=== PATIENT | female | born 1985 | race Caucasian/White ===

== ENCOUNTER 2017-01-12 09:57 | Emergency (ER) | payer OTHER ==
[2017-01-12 10:10] VITALS: BP 110/74
--- NOTE | 2017-01-12 10:51 | RAD ---
INDICATION: Right knee injury. TECHNIQUE: 4 views of the right knee were obtained. FINDINGS: The bones are in normal alignment. No joint effusion or fracture is seen. Joint spaces appear maintained. IMPRESSION: NO EVIDENCE FOR FRACTURE.
--- NOTE | 2017-01-12 11:40 | UC ---
Knee Pain HPI - HPI Summary HPI Summary: TOE CAUGHT ON [place] IN [place], FELL FORWARD IN 01/10/17 HAD ABRASION ON RIGHT KNEE (BILATERAL) PALMS OF HANDS. HANDS ARE HEALING, BUT KNEE IS BECOMING MORE RED SWOLLEN AND PAINFUL. SEEN AT [facility] ON 01/10/17. - History of Current Complaint Chief Complaint: UCLowerExtremity Stated Complaint: KNEE INJURY Time Seen by Provider: 01/12/17 10:02 Hx Obtained From: Patient Hx Last Menstrual Period: 2 MONTHS AGO (TUBAL LIGATION) Onset/Duration: Sudden Onset, Lasting Days, Still Present Severity Initially: Moderate Severity Currently: Moderate Pain Intensity: 7 Pain Scale Used: 0-10 Numeric Character: Dull, Aching Aggravating Factor(s): Movement, Weight Bearing, Prolonged Standing Alleviating Factor(s): Rest, Position, Cold Associated Signs And Symptoms: Positive: Swelling, Redness Able to Bear Weight: Yes - Risk Factors Gout Risk Factor: Negative - Allergies/Home Medications Allergies/Adverse Reactions: Allergies Allergy/AdvReac Type Severity Reaction Status Date / Time Hydrocodone [From Vicodin] Allergy Severe Swelling Verified 09/07/16 13:47 Of Face,Lips,& Throat Meperidine [From Demerol HCl] Allergy Intermediate Hives Verified 09/07/16 13:47 Nalbuphine [From Nubain] Allergy Intermediate Vomiting Verified 09/07/16 13:47 Fluoxetine [From Prozac] Allergy See Comment Verified 09/07/16 13:47 Sertraline [From Zoloft] Allergy See Comment Verified 09/07/16 13:47 Codeine AdvReac Headache Uncoded 09/07/16 13:47 Home Medications: Home Medications Alprazolam XR (NF) [Xanax XR (NF)] 01/12/17 [History] Oxycodone TAB(NF) [Oxycodone HCl 10 MG] 01/12/17 [History] PMH/Surg Hx/FS Hx/Imm Hx Previously Healthy: Yes Endocrine History Of: Denies: Diabetes, Thyroid Disease Cardiovascular History Of: Denies: Cardiac Disorders, Hypertension, Pacemaker/ICD Respiratory History Of: Reports: Asthma Denies: COPD GI/ History Of: Denies: Ulcer, Renal Disease - Surgical History Surgical History: Yes Surgery Procedure, Year, and Place: cat scratch fever infected cyst removal, carpal tunnel BILATERAL WRIST, right wrist CYST REMOVED, TUBAL LIGATION 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 - Family History Known Family History: Positive: Hypertension - Social History Occupation: Employed Full-time Lives: With Family Alcohol Use: None Substance Use Type: Marijuana, Prescribed Substance Use Comment - Amount & Last Used: oxycodone/xanax Smoking Status (MU): Current Every Day Smoker Type: Cigarettes Amount Used/How Often: 1/2 PPD Length of Time of Smoking/Using Tobacco: 17 years Household Exposure Type: Cigarettes Cessation Counseling: Counseled 3+Min - 10 Min - Immunization History Most Recent Tetanus Shot: 02/19/11 Review of Systems Constitutional: Negative Skin: Other - ABRASION RIGHT KNEE AND BILATERAL PALMS Eyes: Negative ENT: Negative Respiratory: Negative Cardiovascular: Negative Gastrointestinal: Negative Genitourinary: Negative Motor: Negative Neurovascular: Negative Musculoskeletal: Negative Neurological: Negative Psychological: Negative All Other Systems Reviewed And Are Negative: Yes Physical Exam Triage Information Reviewed: Yes Appearance: Well-Appearing, No Pain Distress, Well-Nourished Vital Signs: Initial Vital Signs Temp 97.6 F 01/12/17 10:02 Pulse 92 01/12/17 10:02 Resp 16 01/12/17 10:02 BP 110/74 01/12/17 10:02 Pulse Ox 100 01/12/17 10:02 Vital Signs Reviewed: Yes Eye Exam: Normal ENT Exam: Normal ENT: Positive: Normal ENT inspection, Hearing grossly normal, Pharynx normal, TMs normal Dental Exam: Normal Neck exam: Normal Neck: Positive: Supple, Nontender, No Lymphadenopathy Respiratory Exam: Normal Respiratory: Positive: Chest non-tender, Lungs clear, Normal breath sounds, No respiratory distress, No accessory muscle use Cardiovascular Exam: Normal Cardiovascular: Positive: RRR, No Murmur, Pulses Normal, Brisk Capillary Refill Abdominal Exam: Normal Musculoskeletal: Positive: Strength Intact, ROM Intact, No Edema, Other: - ABRASION RIGHT KNEE Neurological Exam: Normal Psychological Exam: Normal Skin Exam: Normal Skin: Positive: Other - HEALING ABRSIONS TO BILATERAL PALMS; RIGHT KNEE ABRASION WITH ERRETHEMA AT [facility] OF INJURY Knee Pain Course/Dx - Differential Dx/Diagnosis Differential Diagnosis/HQI/PQRI: Abrasion, Contusion, Internal Derangement Of Knee, Infection, Sprain, Strain Provider Diagnoses: ABRASION RIGHT KNEE/BILATERAL PALMS; RIGHT KNEE ABRASION; CELLULITIS RIGHT KNEE; Discharge - Discharge Plan Condition: Stable Disposition: HOME Prescriptions: Cephalexin CAP* [Keflex CAP*] 500 mg PO TID #30 cap Patient Education Materials: Cellulitis (ED), Abrasion (ED), Knee Pain (ED) Forms: *Work Release Referrals: Amish AYALA,Katlin Moreno [Primary Care Provider] -
== END 2017-01-12 11:28 | disposition home or self-care (01) ==
LOC: UCEAST 09:57
DX: S80.211A Abrasion, right knee, initial encounter (principal); L03.115 Cellulitis of right lower limb; S60.512A Abrasion of left hand, initial encounter; S60.511A Abrasion of right hand, initial encounter; W18.30XA Fall on same level, unspecified, initial encounter; Y93.9 Activity, unspecified; Y92.412 Parkway as the place of occurrence of the external cause; J45.909 Unspecified asthma, uncomplicated; Z88.5 Allergy status to narcotic agent; F12.90 Cannabis use, unspecified, uncomplicated; F17.210 Nicotine dependence, cigarettes, uncomplicated; Z71.6 Tobacco abuse counseling
CPT/HCPCS: 87070; 87205; 99212; G0463

== ENCOUNTER 2017-01-20 19:42 | Emergency (ER) | payer OTHER ==
[2017-01-20 20:03] VITALS: BP 130/66
[2017-01-20] MEDS ORDERED: Gelfoam 12-7 ADSORBABL SPONGE* 1 EA SPONGE TOPICAL ONE ×2 (20:33→21:09)
[2017-01-20] MEDS ORDERED: Gelfoam 12-7 ADSORBABL SPONGE* 1 EA SPONGE ONE ×2 (20:45→20:48)
--- NOTE | 2017-02-01 07:31 | UC ---
vicenta King Timothy, scribed for Alessia Vallejo MD on 01/20/17 at 2026 . Laceration HPI - HPI Summary HPI Summary: Joselin Guajardo is a 31 yo female presenting to [facility] with a left thumb laceration causing 10/10 burning pain since this morning. She states she was fixing her goat pen and sliced it with a piece of tin. She has self-medicated by rubber- banding her thumb until it stopped bleeding. She took 2mg of xanax 2ND [employer] but is still anxious. She took oxycodone as well. She is on clindamycin as of today TID. 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 - History Of Current Complaint Stated Complaint: THUMB LACERATION Time Seen by Provider: 01/20/17 20:17 Hx Obtained From: Patient Laceration Location: Finger - left thumb Mechanism Of Injury: Sharp Trauma Onset/Duration: Sudden Onset Severity: Moderate Pain Intensity: 10 Pain Scale Used: 0-10 Numeric Aggravating Factors: Nothing - Allergies/Home Medications Allergies/Adverse Reactions: Allergies Allergy/AdvReac Type Severity Reaction Status Date / Time Hydrocodone [From Vicodin] Allergy Severe Swelling Verified 01/20/17 20:03 Of Face,Lips,& Throat Meperidine [From Demerol HCl] Allergy Intermediate Hives Verified 01/20/17 20:03 Nalbuphine [From Nubain] Allergy Intermediate Vomiting Verified 01/20/17 20:03 Fluoxetine [From Prozac] Allergy See Comment Verified 01/20/17 20:03 Sertraline [From Zoloft] Allergy See Comment Verified 01/20/17 20:03 Codeine AdvReac Headache Uncoded 01/20/17 20:03 PMH/Surg Hx/FS Hx/Imm Hx Endocrine History Of: Denies: Diabetes, Thyroid Disease Cardiovascular History Of: Denies: Cardiac Disorders, Hypertension, Pacemaker/ICD Respiratory History Of: Reports: Asthma Denies: COPD GI/ History Of: Denies: Ulcer, Renal Disease - Surgical History Surgical History: Yes Surgery Procedure, Year, and Place: cat scratch fever infected cyst removal, carpal tunnel BILATERAL WRIST, right wrist CYST REMOVED, TUBAL LIGATION 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 - Family History Known Family History: Positive: Hypertension, Diabetes - Social History Alcohol Use: None Substance Use Type: Marijuana, Prescribed Substance Use Comment - Amount & Last Used: oxycodone/xanax Smoking Status (MU): Current Every Day Smoker Type: Cigarettes Amount Used/How Often: 1/2 PPD Length of Time of Smoking/Using Tobacco: 17 years Household Exposure Type: Cigarettes - Immunization History Most Recent Tetanus Shot: 02/19/11 Review of Systems Constitutional: Negative Skin: Other - laceration left thumb Eyes: Negative ENT: Negative Respiratory: Negative Cardiovascular: Negative Gastrointestinal: Negative Genitourinary: Negative Motor: Negative Neurovascular: Negative Musculoskeletal: Negative Neurological: Negative Psychological: Anxious All Other Systems Reviewed And Are Negative: Yes Physical Exam Triage Information Reviewed: Yes Appearance: Well-Appearing, Well-Nourished, Pain Distress Vital Signs: Initial Vital Signs Temp 97.0 F 01/20/17 19:55 Pulse 99 01/20/17 19:55 Resp 20 01/20/17 19:55 BP 130/66 01/20/17 19:55 Pulse Ox 98 01/20/17 19:55 Vital Signs Reviewed: Yes Eyes: Positive: Conjunctiva Clear. Negative: Discharge ENT: Positive: Hearing grossly normal. Negative: Muffled/hoarse voice Neck: Positive: Supple, Nontender Respiratory: Positive: Lungs clear, Normal breath sounds, No respiratory distress Cardiovascular: Positive: RRR, No Murmur, Pulses Normal, Brisk Capillary Refill Musculoskeletal: Positive: Strength Intact, ROM Intact Neurological: Positive: Alert, Muscle Tone Normal Psychological Exam: Normal Psychological: Positive: Age Appropriate Behavior Skin: Positive: Other - superficial avulsion of the ventral surface of the left thumb, oozing Laceration Repair - Laceration Repair 1 Description: Linear : No Repair Necessary - gel foam was applied Laceration Size After Repair: Length (cm) - 2cm, Width (mm) - 1cm, Depth (mm) - 2mm Modified For Repair: No Cleansing Completed Via Routine Prep: Yes Irrigation With Pressure Irrigation Device: No Suture Type: Other - no repair necessary; gel foam applied to stop bleeding Laceration Course/Dx - Course/Dx Course Of Treatment: Joselin Guajardo is a 31 yo female presenting to [facility] with a left thumb laceration and a Hx of anxiety and tobacco use. Her medication list was reviewed at this visit. She had gel foam applied to her left thumb, which was then splinted. Of note is her blood pressure of 123/90. After clinical examination and treatment, she will be discharged home with left thumb ventral avulsion and appropriate instructions. Due to her blood pressure and tobacco use she will be given the diagnosis of elevated blood pressure without diagnosis of hypertension and tobacco abuse disorder. - Differential Dx - Laceration/Wound Differental Diagnoses: Avulsion, Laceration Provider Diagnoses: left thumb ventral avulsion laceration, elevated blood pressure with diagnosis of hypertension, tobacco abuse disorder Discharge - Discharge Plan Condition: Stable Disposition: HOME Patient Education Materials: Finger Laceration (ED) Forms: *Gen. Provider Communication Referrals: Amish AYALA,Katlin Moreno [Primary Care Provider] - 2 Days Additional Instructions: Please follow up with your primary care physician regarding your visit to the emergency department today. Return to urgent care or the emergency department with any new or recurring symptoms. Procedures - Procedure Summary Procedure Summary: Left thumb was splinted after cleaning with sterile technique. A lumifoam splint was used. Pt tolerated procedure well. The documentation as recorded by the vicenta gao Timothy accurately reflects the service I personally performed and the decisions made by , Alessia Vallejo MD.
== END 2017-01-20 21:02 | disposition home or self-care (01) ==
LOC: UCEAST 19:42
DX: S61.012A Laceration without foreign body of left thumb without damage to nail, initial encounter (principal); W45.8XXA Other foreign body or object entering through skin, initial encounter; Y93.89 Activity, other specified; Y92.89 Other specified places as the place of occurrence of the external cause; J45.909 Unspecified asthma, uncomplicated; Z88.5 Allergy status to narcotic agent; Z88.8 Allergy status to other drugs, medicaments and biological substances; F12.90 Cannabis use, unspecified, uncomplicated; F17.210 Nicotine dependence, cigarettes, uncomplicated
CPT/HCPCS: 99212; A9270-GY; G0463

== ENCOUNTER 2017-04-26 10:59 | Emergency (ER) | payer OTHER ==
[2017-04-26 11:34] VITALS: BP 135/72
--- NOTE | 2017-04-26 11:52 | RAD ---
INDICATION: Right knee injury. TECHNIQUE: 4 views of the right knee were obtained. FINDINGS: There is soft tissue swelling present along the anteromedial aspect of the knee. The bones are in normal alignment. No fracture is seen. No joint effusion is noted. Joint spaces appear maintained. IMPRESSION: SOFT TISSUE SWELLING, NO FRACTURE IS SEEN.
--- NOTE | 2017-04-26 12:12 | UC ---
vicenta King Timothy, scribed for Alvin Gallegos MD on 04/26/17 at 1153 . Lower Extremity/Ankle HPI - HPI Summary HPI Summary: Joselin Guajardo is a 31 yo female presenting to [facility] with 10/10 pain, bruising, swelling of her right knee S/P having it closed in a van door 2 days ago. She denies back, hip, or ankle pain. Pt states that she has some kind of clotting disorder which results in infection and hematoma when she is bruised, and she usually receives antibiotics. Her MHx includes asthma, hysterectomy, severe anxiety, tobacco use. - History of Current Complaint Chief Complaint: UCLowerExtremity Stated Complaint: KNEE INJURY Time Seen by Provider: 04/26/17 11:44 Hx Obtained From: Patient Hx Last Menstrual Period: does not get Onset/Duration: Sudden Onset, Lasting Days, Still Present Severity Initially: Moderate Pain Intensity: 10 Pain Scale Used: 0-10 Numeric Aggravating Factor(s): Standing Alleviating Factor(s): Rest Able to Bear Weight: Yes - Allergies/Home Medications Allergies/Adverse Reactions: Allergies Allergy/AdvReac Type Severity Reaction Status Date / Time Hydrocodone [From Vicodin] Allergy Severe Swelling Verified 04/26/17 11:34 Of Face,Lips,& Throat Meperidine [From Demerol HCl] Allergy Intermediate Hives Verified 04/26/17 11:34 Nalbuphine [From Nubain] Allergy Intermediate Vomiting Verified 04/26/17 11:34 Fluoxetine [From Prozac] Allergy See Comment Verified 04/26/17 11:34 Sertraline [From Zoloft] Allergy See Comment Verified 04/26/17 11:34 Codeine AdvReac Headache Uncoded 04/26/17 11:34 PMH/Surg Hx/FS Hx/Imm Hx Respiratory History: Asthma Psychological History: Anxiety - Surgical History Surgical History: Yes Surgery Procedure, Year, and Place: cat scratch fever infected cyst removal, carpal tunnel BILATERAL WRIST, right wrist CYST REMOVED, TUBAL LIGATION 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 - Family History Known Family History: Positive: Hypertension, Diabetes - Social History Alcohol Use: None Substance Use Type: Marijuana, Prescribed Substance Use Comment - Amount & Last Used: oxycodone/xanax Smoking Status (MU): Current Every Day Smoker Type: Cigarettes Amount Used/How Often: 1/2 PPD Length of Time of Smoking/Using Tobacco: 17 years Household Exposure Type: Cigarettes - Immunization History Most Recent Tetanus Shot: 02/19/11 Review of Systems Constitutional: Negative Skin: Negative Eyes: Negative ENT: Negative Respiratory: Negative Cardiovascular: Negative Gastrointestinal: Negative Genitourinary: Negative Motor: Negative Neurovascular: Negative Musculoskeletal: Other: - right knee pain, swelling, bruising Neurological: Negative Psychological: Negative All Other Systems Reviewed And Are Negative: Yes Physical Exam Triage Information Reviewed: Yes Vital Signs: Initial Vital Signs Temp 98.7 F 04/26/17 11:30 Pulse 84 04/26/17 11:30 Resp 16 04/26/17 11:30 BP 135/72 04/26/17 11:30 Pulse Ox 99 04/26/17 11:30 Vital Signs Reviewed: Yes - Additional Comments The patient is well-nourished in no acute distress and in no acute pain. The skin is warm and dry and skin color reflects adequate perfusion. Right knee is warm to touch on the lateral aspect and medial compartment. There is marked erythema around the medial compartment and the lateral aspect of the proximal fibula area, which appears similar to early cellulitis. HEENT: The head is normocephalic and atraumatic. The pupils are equal and reactive. The conjunctivae are clear and without drainage. Nares are patent and without drainage. Mouth reveals moist mucous membranes and the throat is without erythema and exudate. The external ears are intact. The ear canals are patent and without drainage. The tympanic membranes are intact. Neck is supple with full range of motion and non-tender. There are no carotid bruits. There is no neck vein distension. Respiratory: Chest is non-tender. Lungs are clear to auscultation and breath sounds are symmetrical and equal. Cardiovascular: Heart is regular rate and rhythm. There is no murmur or rub auscultated. There is no peripheral edema and pulses are symmetrical and equal. Abdomen: The abdomen is soft and non-tender. There are normal bowel sounds heard in all four quadrants and there is no organomegaly palpated. Musculoskeletal: There is no back pain noted. The right knee is markedly edematous. There is pain in the medial and lateral compartments of the right knee. She cannot fully extend or flex the right knee. There is ecchymosis surrounding the right knee. There is good capillary refill. There is no peripheral edema or calf tenderness elicited. There is tenderness at the medial colateral ligament. Not able to assess ACL or meniscus secondary to pain. Neurological: Patient is alert and oriented to person, place and time. The patient has symmetrical motor strength in all four extremities. Cranial nerves are grossly intact. Deep tendon reflexes are symmetrical and equal in all four extremities. Psychiatric: The patient has an appropriate affect and does not exhibit any anxiety or depression. Diagnostics - Radiology R Knee XR Xray Interpretation: No Acute Changes - IMPRESSION: SOFT TISSUE SWELLING, NO FRACTURE IS SEEN. Radiology Interpretation Completed By: Radiologist Re-Evaluation - Re-Evaluation First Eval Re-Evaluation Time: 11:58 Change: Unchanged Comment: Discussed imaging results with Pt, she is agreeable to current course of Tx. Lower Extremity Course/Dx - Course Course Of Treatment: Joselin Guajardo is a 31 yo female presenting to [facility] with 10/ 10 pain, bruising, swelling of her right knee S/P having it closed in a van door 2 days ago. Pt medication list reviewed this visit. Her R Knee XR suggests no fracture. After clinical examination she will be discharged home with cellulitis and contusion of the right knee with appropriate instructions and follow up. - Differential Dx/Diagnosis Differential Diagnosis/HQI/PQRI: Cellulitis, Fracture (Closed), Infection Provider Diagnoses: constusion and cellulitis right knee Discharge - Discharge Plan Condition: Stable Disposition: HOME Prescriptions: Cephalexin CAP* [Keflex CAP*] 500 mg PO QID #28 cap Patient Education Materials: Contusion in Adults (ED), Cellulitis (ED) Forms: *Work Release Referrals: Amish AYALA,Katlin Moreno [Primary Care Provider] - 2 Days Additional Instructions: Please follow up with your primary care physician regarding your visit to urgent care today. Return to urgent care or the emergency department with any new or recurring symptoms. The documentation as recorded by the vicenta gao Timothy accurately reflects the service I personally performed and the decisions made by , Alvin Gallegos MD.
== END 2017-04-26 12:10 | disposition home or self-care (01) ==
LOC: UCEAST 10:59
DX: Z72.0 Tobacco use (principal); S80.01XA Contusion of right knee, initial encounter; V49.3XXA Car occupant (driver) (passenger) injured in unspecified nontraffic accident, initial encounter; Y93.9 Activity, unspecified; Y92.9 Unspecified place or not applicable; Y99.9 Unspecified external cause status; J45.909 Unspecified asthma, uncomplicated; F41.9 Anxiety disorder, unspecified
CPT/HCPCS: 99213; G0463

== ENCOUNTER 2018-06-22 21:05 | Emergency (ER) | payer OTHER ==
--- OUTSIDE RECORDS SUMMARY | 2018-06-22 21:14 | XMS REPORT ---
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, predominantly inattentive type Onset: 05/02/2018 Depressive disorder Spike Smith NP Active Family History Date Family Member(s) Problem(s) Comments General Heart Disease General Diabetes Father Alcoholism Father Atrial Fibrillation Father Hypertension Father Emphysema Mother Heart Disease Mother Diabetes Social History Type Date Description Comments Marital Status Occupation Unemployed Disabled ETOH Use Denies alcohol use Recreational Drug Use Regularly uses Marijuana Smoking Light tobacco smoker (10 or fewer medical marijuana cigarettes/day) Daily Caffeine Consumes on average 8oz of energy drinks per day Exercise Type/Frequency Exercises rarely Allergies, Adverse Reactions, Alerts Date Description Reaction Status Severity Comments 01/14/2012 Demerol active hives 01/14/2012 Nubain active vomiting 10/14/2016 Codeine active H/A Medications Medication Date Status Form Strength Qnty SIG Indications Ordering Provider Fetzima 05/31/ Active Caps ER 40mg 30cap one F32.89 Spike 2018 24HR s capsule po Sarah, DRUG SAFETY COORDINATOR daily Xanax 05/23/ Active Tablets 2mg 90tab three Spike 2018 s times a Sarah, DRUG SAFETY COORDINATOR day Marijuana 05/02/ Active Spike 2018 Sarah, DRUG SAFETY COORDINATOR Omeprazole / Active Capsules 40mg 1 by mouth Unknown [address] every day Stelara / Active Soln 45mg/0.5M inject Unknown 0000 Prefill L 45mg ( Syringe content of prefilled syringe) every 12 weeks. Oxycodone HCL / Active Tablets 10mg six times Ruelas, 0000 a day SHAWN Dorsey-RANDI Gabapentin / Active Capsules 100mg Take 3 Unknown 0000 Capsules By Mouth Three Times A Day Titrate Up To 3 Capsules Fetzima 05/19/ Hx Caps ER 20mg 60cap 1 cap qd F32.89 Spike 2018 - 24HR s for two Sarah, DRUG SAFETY COORDINATOR 05/31/ and 2017 then increase to two caps daily Desvenlafaxine 05/02/ Hx Tablets ER 50mg 30tab 1 by mouth F32.89 Spike Succinate ER 2018 - 24HR s every day Sarah, DRUG SAFETY COORDINATOR 2017 Bromocriptine 10/14/ Hx Tablets 2.5mg 90tab 1 tab PO D35.2 Shai Mesylate 2016 s bid x 2 [place], days then M.D. 1 tab PO tid [place] 01/27/ Hx Tablets 5-325mg 40tab 1-2 po Nancy 2011 - s q4-6 hr Domínguez, 10/14/ prn pain M.D. 2017 Percocet / Hx Tablets 5-325mg 50tab 1-2 po q4h Unknown 0000 s prn pain Prozac / Hx Capsules 10mg 30cap 1 po qd Unknown 0000 - s 2016 Venlafaxine HCL / Hx Tablets ER 225mg 1 by mouth Unknown ER 0000 24HR every day Desvenlafaxine / Hx Tablets ER 50mg once a day Olga-He Succinate ER 0000 - 24HR ktor, 05/02/ Eddie Main Vital Signs Date Vital Result Comment 06/16/2018 Height 61 inches 5'1" Weight 162.00 lb BP Systolic Sitting 118 mmHg BP Diastolic Sitting 78 mmHg BMI (Body Mass Index) 30.6 kg/m2 06/06/2018 Weight 162.00 lb Heart Rate 94 /min BP Systolic 115 mmHg BP Diastolic 77 mmHg O2 % BldC Oximetry 99 % 05/02/2018 Weight 162.75 lb Heart Rate 78 /min BP Systolic Sitting 108 mmHg BP Diastolic Sitting 72 mmHg Respiratory Rate 18 /min Body Temperature 98.6 F 03/22/2018 Height 61 inches 5'1" Weight 156.00 lb Heart Rate 72 /min BP Systolic Sitting 100 mmHg BP Diastolic Sitting 64 mmHg Respiratory Rate 18 /min Body Temperature 97.4 F BMI (Body Mass Index) 29.5 kg/m2 10/14/2016 Height 61 inches 5'1" Weight 206.00 lb Heart Rate 72 /min BP Systolic Sitting 110 mmHg BP Diastolic Sitting 76 mmHg Pain Level 0 BMI (Body Mass Index) 38.9 kg/m2 03/10/2012 Height 61 inches 5'1" Weight 215.00 lb BP Systolic 102 mmHg BP Diastolic 64 mmHg BMI (Body Mass Index) 40.6 kg/m2 01/28/2012 Height 61 inches 5'1" Weight 215.00 lb BP Systolic 106 mmHg BP Diastolic 58 mmHg BMI (Body Mass Index) 40.6 kg/m2 01/14/2012 Height 61 inches 5'1" Weight 215.00 lb BMI (Body Mass Index) 40.6 kg/m2 Results Test Date Test Result H/L Range Note Laboratory test finding 10/14/2016 Prolactin 70.2 ng/mL High 1.0-25.0 Cortisol 6.17 ?g/dL 1 Thyroid Panel 10/14/2016 Free T4 (Free Thyroxine) 0.64 ng/dL 0.61-1.12 Thyroxine 5.25 ?g/dL Low 6.09-12.23 TSH (Thyroid Stim Horm) 0.77 mcIU/mL 0.34-5.60 1 AM 8.7-22.4 PM <10 Procedures Date CPT Code Description Status 05/06/2018 Mammogram Completed 03/15/2012 58845 Carpal Tunnel Release Completed 02/02/2012 54983 Carpal Tunnel Release Completed 02/02/2012 03770 Excision Tumor Soft Tissue Forearm/Wrist Subcutaneous < Completed 3 CM 01/14/2012 74833 Rad Exam; Wrist, Comp, Min 3 Views Completed Encounters Type Date Location Provider CPT E/M Dx Office Visit 06/06/2018 3:40p [facility] [place] [address] F41.9 [place] F32.89 M25.50 R53.83 R73.01 Office Visit 05/02/2018 4:00p [facility] [place] [address] D35.2 [place] F41.9 F32.89 G47.00 F90.0 E23.6 Office Visit 05/02/2018 2:00p [facility] [place] [address] N64.59 [facility] Office Visit 10/14/2016 10:15a [facility] Shai Talamantes M.D. 75856 D35.2 [facility] Office Visit 01/14/2012 11:15a [facility] [address] 215.2 [facility] Gustavo 354.0 727.41 Plan of Care Future Appointment(s):07/04/2018 2:40 pm - Spike Smith NP at [facility] - Nkjfhqgzm39/20/2018 - Michell Castro, MDD35.2 Benign neoplasm of pituitary glandNew Xrays:MRI Brain W/WoFollow up:Rv in 1-2 months. Please arrange for appointment with Dr Stephens after the MRI is done.
--- OUTSIDE RECORDS SUMMARY | 2018-06-22 21:14 | XMS REPORT ---
:1985 External Reference #:[id number] Author Organization [facility] [employer] Address [address] [place] [address] [place] [address] Phone [phone] Care Team Providers Name Role Phone Luisa Garner MD Primary Care Physician Unavailable Payers Type Date Identification Numbers Payment Provider Subscriber Commercial Effective: Policy Number: [id number] Hugo Guajardo 2011 Group Number: [id number] [address] PayID: [id number] [place] [address] Problems Date Description Provider Status Onset: 10/14/2016 [...] Spike 2018 24HR s capsule po Sarah, DIRECTOR TALENT daily Xanax 05/23/ Active Tablets 2mg 90tab three Spike 2018 s times a Sarah, DIRECTOR TALENT day Marijuana 05/02/ Active Spike 2018 Sarah, DIRECTOR TALENT Omeprazole / Active Capsules 40mg 1 by [...] 2018 - 24HR s for two Sarah, DIRECTOR TALENT 05/31/ and 2017 then increase to two caps daily Desvenlafaxine 05/02/ Hx Tablets ER 50mg 30tab 1 by mouth F32.89 Spike Succinate ER 2018 - 24HR s every day Sarah, DIRECTOR TALENT 2017 Bromocriptine 10/14/ Hx Tablets 2.5mg 90tab 1 tab PO D35.2 Shai Mesylate 2016 s bid x 2 [place], days then M.D. 1 tab PO tid [place] 01/27/ Hx Tablets 5-325mg 40tab 1-2 po [...] Main Vital Signs Date Vital Result Comment 06/06/2018 Weight 162.00 lb Heart Rate 94 [...] Code Description Status 05/06/2018 Mammogram Completed 03/15/2012 96475 Carpal Tunnel Release Completed 02/02/2012 05734 Carpal Tunnel Release Completed 02/02/2012 83283 Excision Tumor Soft Tissue Forearm/Wrist Subcutaneous < Completed 3 CM 01/14/2012 28911 Rad Exam; Wrist, Comp, Min 3 Views Completed Encounters Type Date Location Provider CPT E/M Dx Office Visit 05/02/2018 4:00p [facility] [place] [address] D35.2 [place] F41.9 F32.89 G47.00 F90.0 E23.6 Office Visit 05/02/2018 2:00p [facility] [place] [address] N64.59 [facility] Office Visit 10/14/2016 10:15a [facility] Shai Talamantes M.D. 95628 D35.2 Of [facility] Office Visit 01/14/2012 11:15a [facility] [address] 215.2 [facility] Gustavo 354.0 727.41 Plan of Care Future Appointment(s):07/04/2018 2:40 pm - Spike Smith NP at [facility] - Wrsibaecm44/18/2018 11:30 am - Michell Castro MD at [facility]06/06/2018 - Spike Smith NPF41.9 Anxiety disorder, vdfeorrytstK35.89 Other specified depressive episodesComments:STart taking the Fetzima as soon as you get it.Continue with the xanax.It is important to continu following with mental health and trying to get in with a provider there.Follow up:4-4xmzkeI05.50 Pain in unspecified eyiykL17.83 Other fjfdhcnC02.01 Impaired fasting glucose
[2018-06-22] MEDS ORDERED: Cephalexin CAP* 500 MG PO ONE (22:22)
[2018-06-22 22:24] VITALS: BP 120/74
--- NOTE | 2018-06-22 22:24 | UC ---
UC General HPI - HPI Summary HPI Summary: yesterday, pt noted a bruise to her R lower leg. today, the area has become red and warm plus she is not feeling well. she states this haapens often and she gets an antibiotic but then the area often needs to be opened and packed. she denies hx of MRSA. - History of Current Complaint Stated Complaint: RIGHT LEG SWELLING/BEE STING YESTERDAY Time Seen by Provider: 06/22/18 22:15 Hx Obtained From: Patient Hx Last Menstrual Period: does not get Onset/Duration: Gradual Onset Timing: Constant Aggravating: nothing Alleviating: nothing - Allergy/Home Medications Allergies/Adverse Reactions: Allergies Allergy/AdvReac Type Severity Reaction Status Date / Time hydrocodone Allergy Severe Swelling Verified 06/22/18 22:24 Of Face,Lips,& Throat meperidine [From Demerol] Allergy Intermediate Hives Verified 06/22/18 22:24 nalbuphine [From Nubain] AdvReac Intermediate Vomiting Verified 06/22/18 22:24 codeine AdvReac Headache Verified 06/22/18 22:24 fluoxetine [From Prozac] AdvReac See Comment Verified 06/22/18 22:24 sertraline [From Zoloft] AdvReac See Comment Verified 06/22/18 22:24 PMH/Surg Hx/FS Hx/Imm Hx - Additional Past Medical History Additional PMH: psoriasis, ADHD, Cellulitis, chronic pain Psychological History: Anxiety, Depression - Surgical History Surgical History: Yes Surgery Procedure, Year, and Place: cat scratch fever infected cyst removal, carpal tunnel BILATERAL WRIST 2008, right wrist CYST REMOVED 2006, TUBAL LIGATION 2013, 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 - Family History Known Family History: Positive: Hypertension, Diabetes - Social History Lives: With Family Alcohol Use: None Substance Use Type: None Substance Use Comment - Amount & Last Used: oxycodone/xanax Smoking Status (MU): Current Every Day Smoker Type: Cigarettes Amount Used/How Often: 1/2 PPD Length of Time of Smoking/Using Tobacco: 17 years Household Exposure Type: Cigarettes - Immunization History Most Recent Tetanus Shot: 02/19/11 Vaccination Up to Date: Yes Review of Systems Constitutional: Fatigue Skin: Rash - R leg Eyes: Negative ENT: Negative Respiratory: Negative Cardiovascular: Negative Gastrointestinal: Negative Genitourinary: Negative Motor: Negative Neurovascular: Negative Musculoskeletal: Negative Neurological: Negative Psychological: Negative Is Patient Immunocompromised?: Yes All Other Systems Reviewed And Are Negative: Yes Physical Exam Triage Information Reviewed: Yes Appearance: Well-Appearing Vital Signs Reviewed: Yes Eyes: Positive: Conjunctiva Clear ENT: Positive: Pharynx normal, TMs normal. Negative: Nasal congestion, Nasal drainage Neck: Positive: Supple, Nontender, No Lymphadenopathy Respiratory: Positive: Lungs clear, Normal breath sounds Cardiovascular: Positive: RRR, No Murmur Abdomen Description: Positive: Nontender, No Organomegaly, Soft Bowel Sounds: Positive: Present Musculoskeletal: Positive: ROM Intact Neurological: Positive: Alert Psychological: Positive: Age Appropriate Behavior Skin Exam: Normal, Other - RLE: lateral lower leg has a 6" x 4" area or erythema and warmth but no bruising of fluctuance and no streaking. Course/Dx - Course Course Of Treatment: non toxic. exam c/w cellulitis. - Differential Dx - Multi-Symptom Provider Diagnoses: Cellulitis RLE Discharge - Sign-Out/Discharge Documenting (check all that apply): Patient Departure All imaging exams completed and their final reports reviewed: No Studies - Discharge Plan Condition: Stable Disposition: HOME Prescriptions: Cephalexin CAP* [Keflex CAP*] 500 mg PO TID 10 Days #30 cap Patient Education Materials: Cellulitis (DC) Forms: *Gen. Provider Communication Referrals: Luisa Garner MD [Primary Care Provider] - 2 Days - Billing Disposition and Condition Condition: STABLE Disposition: Home
== END 2018-06-22 22:30 | disposition home or self-care (01) ==
LOC: UCCORT 21:05
DX: L03.115 Cellulitis of right lower limb (principal); R53.83 Other fatigue; Z88.5 Allergy status to narcotic agent; Z88.8 Allergy status to other drugs, medicaments and biological substances; F17.210 Nicotine dependence, cigarettes, uncomplicated
CPT/HCPCS: 99212; A9270-GY; G0463

== ENCOUNTER 2019-06-12 19:09 | Emergency (ER) | payer OTHER ==
--- OUTSIDE RECORDS SUMMARY | 2019-06-12 19:16 | XMS REPORT | Summary of Care ---
:1985 Author Organization [facility] Address [address] [facility] [place] [address] Care Team Providers Name Role Phone Rimma Gipson MD Primary Care Provider Reason for Visit Reason Comments Follow-up 1-month follow-up after starting Epclusa. Encounter Details Date Type Department Care Team Description 05/23/2019 Office Visit Carlos Miles, Chronic hepatitis C Gastroenterology/Hepa Snehal Hull NP without hepatic coma tology [facility] (HCC) (Primary Dx) [address] [facility] [place] [address] [place] [address] Allergies Active Allergy Reactions Severity Noted Date Comments Codeine GI Reaction 09/07/2018 Abdominal pain Demerol Hives 09/07/2018 Vfbcglpxex-Akczekdjvk-Jwepgntrht GI Reaction 09/07/2018 Vomiting Hydrocodone-Acetaminophen Swelling 09/07/2018 Facial swelling documented as of this encounter (statuses as of 05/23/2019) Medications Medication Sig Dispensed Refills Start Date End Date Status Omeprazole 40 MG Take 1 Cap by 0 Active Oral CAPSULE DELAYED mouth DAILY. RELEASE Ustekinumab Inject 90 mg 0 Active (STELARA) 90 MG/ML beneath the Subcutaneous skin. Every Solution Prefilled 12 weeks Syringe gabapentin Take 600 mg 0 Active (NEURONTIN) 300 MG by mouth Oral Cap THREE TIMES DAILY. trazodone (DESYREL) Take 50 mg by 0 Active 50 MG Oral Tab mouth EVERY BEDTIME. MEDICAL MARIJUANA 0 Active Sofosbuvir-Velpatasv Take 1 Tab by 28 Tab 2 03/29/2019 Active ir 400-100 MG Oral mouth DAILY. Tab buprenorphine hcl Place 24 mg 0 Active (SUBUTEX) 2 MG under tongue Sublingual SL Tab DAILY. Oxycodone HCl 10 MG Take 1 Tab by 0 05/23/2019 Discontinued Oral Tab mouth EVERY FOUR HOURS. documented as of this encounter (statuses as of 05/23/2019) Active Problems Problem Noted Date Anxiety and depression H/O gestational diabetes mellitus, not currently Pituitary adenoma Psoriasis Overview: Dr. Nazario Psoriatic arthritis PTSD (post-traumatic stress disorder) documented as of this encounter (statuses as of 05/23/2019) Immunizations Name Administration Dates Next Due Influenza (IM) Preservative Free 07/08/2018 PNEUMOCOCCAL POLYSACCHARIDE VACCINE 10/18/2018 documented as of this encounter Social History Tobacco Use Types Packs/Day Years Used Date Current Every Day Smoker Cigarettes 0.5 Smokeless Tobacco: Never Used Alcohol Use Drinks/Week oz/Week Comments Not Currently Sex Assigned at Date Recorded Not on file Job Start Date Occupation Industry Not on file Not on file Not on file Travel History Travel Start Travel End No recent travel history available. documented as of this encounter Last Filed Vital Signs Vital Sign Reading Time Taken Comments Blood Pressure 106/68 05/23/2019 1:19 PM EDT Pulse 72 05/23/2019 1:19 PM EDT Temperature 36 05/23/2019 1:19 PM EDT C (96.8 F) Respiratory Rate - - Oxygen Saturation - - Inhaled Oxygen Concentration - - Weight 77.8 kg (171 lb 8 oz) 05/23/2019 1:19 PM EDT Height 154.9 cm (5' 1") 05/23/2019 1:19 PM EDT Body Mass Index 32.4 05/23/2019 1:19 PM EDT documented in this encounter Patient Instructions Patient InstructionsSnehal Miles NP - 05/23/2019 1:00 PM EDT1. Continue current treatment plan 2. Recheck labs July 2019, ( will also check these again February 2020 and July 2020 to confirm no evidence of recurrence of virus) 3. Follow up at completion of therapy Thank you for choosing the [facility] for your needs today! -Snehal Miles N.P. , Please call if you need to cancel or change your appt. time. Thank you for choosing [facility] for your health care needs, and for consulting with [facility] today. You may receive a survey following this visit, or after an upcoming hospital stay. As easy as it is to feel overloaded with surveys, we are required to send them out randomly and they do provide important feedback so that we may serve your needs in the best way. Please do take the few minutes required to complete the survey if you receive one. We get them too, after seeing the doctor, and they only take a few minutes to complete. documented in this encounter Progress Notes Snehal Miles NP - 05/23/2019 1:00 PM EDT PATIENT: Joselin Guajardo MRN: [id number] : 1985 DATE OF SERVICE: 05/23/2019 Chief Complaint Patient presents with Follow-up 1-month follow-up after starting Epclusa. SUBJECTIVE: Joselin Guajardo is a very pleasant 33-y.o. female who presents today for a follow up of Hepatitis C. She began treatment with Velpatasvir/Sofosbuvir 4 weeks ago. Fibrosure score was F0, indicating no fibrosis. There has been no evidence of hepatic decompensation. Denies abdominal pain,heartburn, dysphagia, fatigue, nausea, vomiting, melena, hamatemesis, hematochezia, constipation, diarrhea, jaundice, fevers, chills, night sweats, weight loss, easy bruising, chest pain, shortness of breath, dysuria, hematuria, pyuria, joint pains, acholic stools, dark urine or systemic pruritis. Past Medical History: Diagnosis Date Anxiety and depression H/O gestational diabetes mellitus, not currently Pituitary adenoma (HCC) Psoriasis Dr. Nazario Psoriatic arthritis (HCC) PTSD (post-traumatic stress disorder) Past Surgical History: Procedure Laterality Date LAPAROSCOPIC TUBAL LIGATION PITUITARY OPERATION NEC Social History Socioeconomic History Marital status: Spouse name: Not on file Number of children: Not on file Years of education: Not on file Highest education level: Not on file Occupational History Not on file Social Needs Financial resource strain: Not on file Food insecurity: Worry: Not on file Inability: Not on file Transportation needs: Medical: Not on file Non-medical: Not on file Tobacco Use Smoking status: Current Every Day Smoker Packs/day: 0.50 Types: Cigarettes Smokeless tobacco: Never Used Substance and Sexual Activity Alcohol use: Not Currently Drug use: Yes Types: Marijuana Sexual activity: Yes control/protection: Surgical Lifestyle Physical activity: Days per week: Not on file Minutes per session: Not on file Stress: Not on file Relationships Social connections: Talks on phone: Not on file Gets together: Not on file Attends christian service: Not on file Active member of club or organization: Not on file Attends meetings of clubs or organizations: Not on file Relationship status: Not on file Intimate partner violence: Fear of current or ex partner: Not on file Emotionally abused: Not on file Physically abused: Not on file Forced sexual activity: Not on file Other Topics Concern Not on file Social History Narrative Not on file Codeine; Demerol; Nubain [vuoagounvd-qrbpeixrkn-yvhxrecojs]; and Vicodin [ hydrocodone-acetaminophen] Outpatient Medications as of 05/23/2019 Medication Sig Dispense Refill gabapentin (NEURONTIN) 300 MG Oral Cap Take 600 mg by mouth THREE TIMES DAILY. MEDICAL MARIJUANA Omeprazole 40 MG Oral CAPSULE DELAYED RELEASE Take 1 Cap by mouth DAILY. Sofosbuvir-Velpatasvir 400-100 MG Oral Tab Take 1 Tab by mouth DAILY. 28 Tab 2 trazodone (DESYREL) 50 MG Oral Tab Take 50 mg by mouth EVERY BEDTIME. Ustekinumab (STELARA) 90 MG/ML Subcutaneous Solution Prefilled Syringe Inject 90 mg beneath the skin. Every 12 weeks No current facility-administered medications on file as of 05/23/2019. REVIEW OF SYSTEMS: All remaining review of systems was negative except for as noted in the history of present illness/subjective. OBJECTIVE: PHYSICAL EXAMINATION: BP 106/68 Pulse 72 Temp 96.8 F (36 C) Ht 5' 1" (1.549 m) Wt 171 lb 8 oz (77.8 kg) BMI 32.4 kg/m2 GENERAL: alert, oriented, no acute distress. HEENT: No scleral icterus, MMM Psych: Affect normal Neck: no lymphadenopathy LUNGS: clear to auscultation bilaterally. HEART: regular rhythm, no murmurs, no gallops, no rubs. ABDOMEN: general exam: soft, non-tender, non-distended, without masses or organomegaly, normal active bowel sounds, Arnold's sign negative. Extremities: no edema Skin: clear Neuro: gait normal, a&o x 3 RECTAL: exam deferred. IMPRESSION/PLAN ICD-9-CM ICD-10-CM 1. Chronic hepatitis C without hepatic coma (HCC) 070.54 B18.2 COMPREHENSIVE METABOLIC PANEL HEPATITIS C RNA, QUANTITATIVE, PCR Patient Instructions 1. Continue current treatment plan 2. Recheck labs July 2019, ( will also check these again February 2020 and July 2020 to confirm no evidence of recurrence of virus) 3. Follow up at completion of therapy Thank you for choosing the [facility] for your needs today! -Snehal Miles N.P. , Please call if you need to cancel or change your appt. time. Thank you for choosing [facility] for your health care needs, and for consulting with [facility] today. You may receive a survey following this visit, or after an upcoming hospital stay. As easy as it is to feel overloaded with surveys, we are required to send them out randomly and they do provide important feedback so that we may serve your needs in the best way. Please do take the few minutes required to complete the survey if you receive one. We get them too, after seeing the doctor, and they only take a few minutes to complete. AUTHOR: Snehal Miles NP 05/23/2019 13:41 documented in this encounter Plan of Treatment Name Type Priority Associated Diagnoses Order Schedule COMPREHENSIVE METABOLIC Lab Routine Chronic hepatitis C Expected: 2018 PANEL without hepatic coma (Approximate), (HCC) Expires: 05/23/2020 HEPATITIS C RNA, Lab Routine Chronic hepatitis C Expected: 05/23/2019 QUANTITATIVE, PCR without hepatic coma (Approximate), (HCC) Expires: 08/23/2019 Health Maintenance Due Date Last Done Comments DEPRESSION SCREENING 1995 HIV SCREENING 12/17/1998 INFLUENZA VACCINE (#1) 2019 07/08/2018 PAP SMEAR 10/18/2021 10/18/2018 PNEUMOCOCCAL 0-64 YRS Completed 10/18/2018 HPV IMMUNIZATION SERIES Aged Out No longer eligible based on patient's age to complete this topic MENINGOCOCCAL VACCINE IMM Aged Out No longer eligible based on patient's age to complete this topic documented as of this encounter Goals Goal Patient Goal Associated Recent Patient-Stated? Author Type Problems Progress Depression Depression No Brandan screen (PHQ-9) Rimma, total score < 5 Note: This is an individualized treatment (depression) goal for Joselin Guajardo: Displayed above is your goal for a depression screening (PHQ-9) score that would indicate good control of your depression. Keep a regular sleep schedule Lifestyle No Rimma Gipson MD Note: This is an individualized lifestyle goal for Joselin Guajardo: Please maintain a regular sleep schedule. This may help with some symptoms of depression. Take all prescribed medications as Self-management No Rimma Gipson MD directed Note: This is an individualized self-management goal for Joselin Guajardo: Please take all prescribed medications as directed. 1. Do not skip doses. If you cannot afford your medications, talk with your doctor. 2. Use a pill reminder system such as a pill box if needed. Your pharmacist can help you with this. 3. Contact your Pharmacy 5 days before your medication runs out. If you cannot take your medications for any reasons, talk with your doctor. 4. Please bring all of your medication bottles and inhalers (or a list of all your medications/inhalers) with you to every visit. Potential barriers to meeting all of your care plan goals will continue to be addressed on an ongoing basis. documented as of this encounter Results Not on filedocumented in this encounter Visit Diagnoses Diagnosis Chronic hepatitis C without hepatic coma (HCC) - Primary documented in this encounter documented as of this encounter
[2019-06-12 19:20] VITALS: BP 111/65
--- NOTE | 2019-06-12 19:42 | UC ---
Respiratory Complaint HPI - HPI Summary HPI Summary: 33 yo female presents with cough. She tells me that for the last 2 days she has had a cough and chest congestion. Today has been much worse with wheezing. She does smoke daily and has a history of asthma. Has not been taking anything OTC for her symptoms. Denies fever, chills, sore throat, SOB, chest pain, abdominal pain, n/v. - History of Current Complaint Chief Complaint: UCRespiratory Stated Complaint: COLD SYMPTOMS Time Seen by Provider: 06/12/19 19:42 Hx Obtained From: Patient Hx Last Menstrual Period: 06/11/19 Onset/Duration: Gradual Onset Severity Initially: Mild Severity Currently: Mild Pain Intensity: 4 Character: Cough: Nonproductive - Allergies/Home Medications Allergies/Adverse Reactions: Allergies Allergy/AdvReac Type Severity Reaction Status Date / Time hydrocodone Allergy Severe Swelling Verified 06/12/19 19:20 Of Face,Lips,& Throat meperidine [From Demerol] Allergy Intermediate Hives Verified 06/12/19 19:20 nalbuphine [From Nubain] AdvReac Intermediate Vomiting Verified 06/12/19 19:20 codeine AdvReac Headache Verified 06/12/19 19:20 fluoxetine [From Prozac] AdvReac See Comment Verified 06/12/19 19:20 sertraline [From Zoloft] AdvReac See Comment Verified 06/12/19 19:20 PMH/Surg Hx/FS Hx/Imm Hx - Additional Past Medical History Additional PMH: psoriasis Respiratory History: Asthma GI/ History: Gastroesophageal Reflux - Surgical History Surgical History: Yes Surgery Procedure, Year, and Place: cat scratch fever infected cyst removal,. carpal tunnel BILATERAL WRIST 2008,. right wrist CYST REMOVED 2006,. TUBAL LIGATION 2013,. 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 - Family History Known Family History: Positive: Hypertension, Diabetes - Social History Lives: With Family Alcohol Use: None Substance Use Type: Marijuana Substance Use Comment - Amount & Last Used: oxycodone/xanax Smoking Status (MU): Current Every Day Smoker Type: Cigarettes Amount Used/How Often: 1/2 PPD Length of Time of Smoking/Using Tobacco: 17 years Household Exposure Type: Cigarettes - Immunization History Most Recent Tetanus Shot: 02/19/11 Vaccination Up to Date: Yes Review of Systems All Other Systems Reviewed And Are Negative: No Constitutional: Positive: Negative Skin: Positive: Negative Eyes: Positive: Negative ENT: Positive: Nasal Discharge Respiratory: Positive: Cough Cardiovascular: Positive: Negative Gastrointestinal: Positive: Negative Neurovascular: Positive: Negative Neurological: Positive: Negative Psychological: Positive: Negative Physical Exam - Summary Physical Exam Summary: GENERAL: NAD. WDWN. No pain distress. SKIN: No rashes, sores, lesions, or open wounds. HEENT: Head: AT/NC Eyes: Conjunctiva clear without inflammation or discharge. Ears: Hearing grossly normal. TMs intact, no bulging, erythema, or edema. Nose: Nasal mucosa pink and moist. NTTP maxillary and frontal sinus. Throat: Posterior oropharynx without exudates, erythema, or tonsillar enlargement. Uvula midline. NECK: Supple. Nontender. No lymphadenopathy. CHEST: Moderate wheezing throughout. No r/r. No accessory muscle use. Breathing comfortably and in no distress. CV: RRR. Without m/r/g. Pulses intact. Cap refill <2seconds NEURO: Alert. PSYCH: Age appropriate behavior. Triage Information Reviewed: Yes Vital Signs: Initial Vital Signs Temp 99.5 F 06/12/19 19:17 Pulse 97 06/12/19 19:17 Resp 19 06/12/19 19:17 BP 111/65 06/12/19 19:17 Pulse Ox 96 06/12/19 19:17 Vital Signs Reviewed: Yes Diagnostics - Radiology CXR Radiology Interpretation Completed By: ED Physician Summary of Radiographic Findings: No PNA Respiratory Course/Dx - Course Course Of Treatment: CXR wet read negative. In the clinic she was given duoneb treatment and reported feeling significantly better s/p. Her wheezing had greatly diminished, but was still scattered in her right lung > left. Suspect bronchitis/asthma exacerbation. Will place her on zpak given her immunosuppressed status, prednisone, and she was provided with an albuterol inhaler this evening. - Differential Dx/Diagnosis Provider Diagnosis: Asthma exacerbation Discharge ED - Sign-Out/Discharge Documenting (check all that apply): Patient Departure All imaging exams completed and their final reports reviewed: No - Discharge Plan Condition: Stable Disposition: HOME Prescriptions: Azithromycin TAB* [Zithromax TAB (Z-MAYA) 250 mg #6 tabs] 2 tab PO .TODAY, THEN 1 DAILY #1 maya predniSONE TAB* [Deltasone 20 MG TAB*] 40 mg PO DAILY #10 tab Patient Education Materials: Acute Bronchitis (ED) Referrals: Rimma Gipson MD [Primary Care Provider] - Additional Instructions: If you develop a fever, shortness of breath, chest pain, new or worsening symptoms - please call your PCP or go to the ED immediately. - Billing Disposition and Condition Condition: STABLE Disposition: Home - Attestation Statements Provider Attestation: Per institutional requirements, I have reviewed the chart, however, I was not consulted specifically or made aware of this patient by the midlevel provider. I did not personally evaluate, interact with , or disposition this patient.
[2019-06-12] MEDS ORDERED: Albuterol/Ipratropium NEB.SOL* Albuterol 2.5 MG/Ipratropium 0.5 MG 3 ML INH ONE (19:46)
[2019-06-12] MEDS ORDERED: Albuterol HFA INHALER* 8 gm MDI INH ONE (20:21)
--- NOTE | 2019-06-13 10:02 | UC ---
- Progress Note Progress Note: XR wet read correct Course/Dx - Diagnoses Provider Diagnoses: Asthma exacerbation Discharge ED - Sign-Out/Discharge Documenting (check all that apply): Post-Discharge Follow Up All imaging exams completed and their final reports reviewed: Yes - Discharge Plan Condition: Stable Disposition: HOME Prescriptions: Azithromycin TAB* [Zithromax TAB (Z-MAYA) 250 mg #6 tabs] 2 tab PO .TODAY, THEN 1 DAILY #1 maya predniSONE TAB* [Deltasone 20 MG TAB*] 40 mg PO DAILY #10 tab Patient Education Materials: Acute Bronchitis (ED) Referrals: Rimma Gipson MD [Primary Care Provider] - Additional Instructions: If you develop a fever, shortness of breath, chest pain, new or worsening symptoms - please call your PCP or go to the ED immediately. - Billing Disposition and Condition Condition: STABLE Disposition: Home
== END 2019-06-12 20:35 | disposition home or self-care (01) ==
LOC: UCEAST 19:09
DX: J45.901 Unspecified asthma with (acute) exacerbation (principal); K21.9 Gastro-esophageal reflux disease without esophagitis; F17.210 Nicotine dependence, cigarettes, uncomplicated; Z88.5 Allergy status to narcotic agent
CPT/HCPCS: 71046; 99213; A9270-GY; G0463